=== PATIENT | female | born 1970 | race Two or more races ===

== ENCOUNTER 2017-04-30 00:07 | Emergency (ER) | payer OTHER ==
[~2017-04-30] VITALS: Ht 162.6 cm; Wt 56.7 kg
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
--- NOTE | 2017-04-30 00:30 | NUR ---
XR AT BEDSIDE.
[2017-04-30] MEDS ORDERED: HYDROCODONE/APAP 5/325MG 1 EACH TABLET PO ONE (01:30)
--- NOTE | 2017-04-30 01:30 | NUR ---
patient with splint on the left lower leg to foot, cms intact post application. Patient with leg boot on the right extremity, cms intact.
--- NOTE | 2017-04-30 01:33 | NUR ---
Patient discharged to home in stable condition. Written and verbal after care instructions given. Patient verbalizes understanding of instruction. Patient wheeled to private car, accompanied by significant other. No further complaints.
[2017-04-30 01:35] VITALS: BP 118/72
== END 2017-04-30 01:36 | disposition home or self-care (01) ==
LOC: ER 00:09
DX: S82.62XA Displaced fracture of lateral malleolus of left fibula, initial encounter for closed fracture (principal); S93.401A Sprain of unspecified ligament of right ankle, initial encounter; Z90.13 Acquired absence of bilateral breasts and nipples; X50.1XXA Overexertion from prolonged static or awkward postures, initial encounter; Y93.39 Activity, other involving climbing, rappelling and jumping off; Y92.89 Other specified places as the place of occurrence of the external cause; Y99.8 Other external cause status
CPT/HCPCS: 73610-TC; A4606; Z7610